=== PATIENT | male | born 1985 | race Caucasian/White ===

== ENCOUNTER 2023-01-30 21:14 | Outpatient (REF) | payer SELFPAY | END 2023-01-30 21:15 | disposition home or self-care (01) | LOC: LBN 21:14 | PROVIDERS: Visit Provider Physician Assistant Medical | DX: J02.9 Acute pharyngitis, unspecified (principal) | CPT/HCPCS: 87070 ==

== ENCOUNTER 2023-04-02 19:49 | Outpatient (CLI) | payer SELFPAY ==
[2023-04-02 14:20] LABS: Kit/Specimen SENT
== END 2023-04-02 19:50 | disposition home or self-care (01) ==
LOC: LBO 19:51
PROVIDERS: Visit Provider Naturopath
DX: R53.83 Other fatigue (principal); E63.8 Other specified nutritional deficiencies
CPT/HCPCS: 36415

== ENCOUNTER 2023-04-18 11:45 | Outpatient (CLI) | payer BC, SELFPAY ==
[2023-04-18 11:00] LABS: Abs Immature Grans 0.01 10^3/uL (0.0-0.06); Absolute Basophil Count 0.04 10^3/uL (0.0-0.2); Absolute Eosinophil Count 0.19 10^3/uL (0.0-0.7); Absolute Lymphocyte Count 1.45 10^3/uL (1.2-3.4); Absolute Monocyte Count 0.51 10^3/uL (0.1-0.8); Absolute Neutrophil Count 2.54 10^3/uL (1.2-6.7); Basophils % 0.8; HCT 43.4 % (40.0-50.0); HGB 14.2 g/dL (13.5-17.5); Immature Grans % 0.2; Lymphocytes % 30.6; MCH 28.9 pg (27.0-33.0); MCHC 32.7 % (32.0-36.0); MCV 88 fL (80-95); MPV 8.9 fL (8.0-11.0); Monocytes % 10.8; Neutrophils % 53.6; Platelet Count 204 10^3/uL (130-400); RBC 4.92 10^6/uL (4.36-5.78); RDW 11.8 % (11.8-14.1); RDW-SD 37.3 fL; WBC 4.74 10^3/uL (4.4-10.8)
[2023-04-18 11:02] LABS: Bilirubin Negative (Negative); Blood Negative (Negative); Clarity Clear (Clear); Glucose Negative (Negative); Ketones Negative (Negative); Leukocyte Esterase Negative (Negative); Nitrite Negative (Negative); Specific Gravity 1.025 (1.005-1.025); Urobilinogen 0.2 mg/dL (Up to 0.2)
[2023-04-18 11:17] LABS: Hemoglobin A1C 5.3 % (<5.7)
[2023-04-18 11:48] LABS: ALT 23 U/L (16-63); AST 17 U/L (15-37); Albumin 4.1 g/dL (3.4-5.0); Alkaline Phosphatase 79 U/L (46-116); Anion Gap 4.7 mmol/L (3-11); BUN 12 mg/dL (7-18); Bilirubin, Total 0.4 mg/dL (0.2-1.0); CO2 31.3 mmol/L (21.0-32.0); CREATININE 0.9 mg/dL (0.70-1.30); Calcium 9.2 mg/dL (8.5-10.1); Calculated LDL 157 mg/dL (<100); Chloride 103 mmol/L (98-107); Cholesterol 220 mg/dL (<200); Estimated GFR 112.81 (mL/min/1.73m2); Ferritin 99 ng/mL (26-388); Glucose 100 mg/dL (74-106); HDL Cholesterol 53 mg/dL (40-60); Potassium 4.2 mmol/L (3.5-5.1); Sodium 139 mmol/L (136-145); TSH 1.21 uIU/mL (0.36-3.74); Total Protein 7.8 g/dL (6.4-8.2); Triglyceride 53 mg/dL (<150)
[2023-04-18 11:51] LABS: Iron 97 ug/dL (65-175)
[2023-04-18 11:54] LABS: Vitamin D 25 Total 21.9 ng/mL (30-100)
[2023-04-18 12:09] LABS: FREE T4 0.92 ng/dL (0.76-1.46)
[2023-04-18 19:29] LABS: T3,Free 4.4 pg/mL (2.8-5.3)
[2023-04-18 19:57] LABS: Sex Hormone Binding Globulin 33.4 nmol/L (11.5-54.5)
[2023-04-21 10:35] LABS: Lyme Ab w Rflx to Lyme Confirm Negative (Negative)
[2023-04-25 12:39] LABS: Testosterone, Free 16.3 ng/dL (4.65-18.1); Testosterone, Total 554 ng/dL (240-950)
== END 2023-04-18 11:46 | disposition home or self-care (01) ==
LOC: LBO 11:47
PROVIDERS: Visit Provider Naturopath
DX: L40.8 Other psoriasis (principal); L20.89 Other atopic dermatitis; J30.2 Other seasonal allergic rhinitis; R42 Dizziness and giddiness; R53.83 Other fatigue; D50.9 Iron deficiency anemia, unspecified; E07.9 Disorder of thyroid, unspecified; Z13.220 Encounter for screening for lipoid disorders; R35.0 Frequency of micturition; Z13.1 Encounter for screening for diabetes mellitus; E55.9 Vitamin D deficiency, unspecified; R59.0 Localized enlarged lymph nodes
CPT/HCPCS: 36415; 80053; 80061; 82306; 84402; 84403; 81003; 82728; 83036; 83540; 84270; 84439; 84443; 84481; 85025; 86618

== ENCOUNTER 2024-11-09 11:40 | Emergency (ER) | payer BC, SELFPAY ==
[2024-11-09 11:50] VITALS: BP 127/91; PULSE 63; RESP 15; O2SAT 97
[2024-11-09] MEDS: Diph,Pertuss(Acell),Tet Vac/Pf 0.5 ML SYR IM (12:16)
[2024-11-09] MEDS: Acetaminophen 500 MG TAB 1000 MG PO (12:17)
[2024-11-09] MEDS: Cellulose,Oxidized 2X3 PKT 1 EACH MC (12:24)
[2024-11-09] MEDS: Lidocaine 2% Multi-Dose 20 ML VIAL IJ (12:37)
--- NOTE | 2024-11-09 12:49 | W.ED.GENAD ---
Discharge Plan Disposition Patient Disposition: Home Discharge Details Clinical Impression: Laceration of right middle finger, Immunization, tetanus-diphtheria Primary Care Provider: None,None ED Provider: Pedro Helms Home Meds and New Rx's Prescriptions: New Morphine Ir, 4 Tabs/Btl [Msir, 4 Tabs/Btl] 15 mg PO DISPENSE Qty: 4 0RF Discharge Instructions Additional Instructions: You were seen in the emergency department for your finger laceration. As we discussed, please keep your bandage intact and dry for the next 36 to 48 hours. You may remove your bandage on morning. You may keep the gauze in place and do not try to soak this off in the Friday morning. If you develop any recurrent bleeding please hold pressure. If your bleeding does not stop with pressure please return to the emergency department. Your tetanus was updated in the emergency department. For your pain please take medications as follows: 1. Take acetaminophen (Tylenol), 1,000 mg (two 500 mg tabs) every 6 hours [2. Take ibuprofen (Advil), 400 mg every 6 hours.] Discharge Data Discharge Date/Time-TO BE ENTERED AT DEPARTURE: 11/09/24 13:22 HPI General Date/Time Provider Initiated Documentation: 11/09/24 11:53. HPI Narrative: MDM This is an overall quite well-appearing normothermic and not tachycardic [id number] male with right middle finger tip superficial avulsion with ongoing bleeding for which patient received primary closure in the emergency department using cyanoacrylate glue and Telfa. Please see separate procedure note for details. Patient had intact sensation and motor function in his right middle finger. Based on the superficial nature of his wound I did not feel that he required radiographs. He received tetanus immunization. His wound was rinsed in tap water. He received as needed to go bottle of morphine in the event that he develops pain overnight requiring additional analgesia beyond scheduled acetaminophen and ibuprofen. No pain or proportion to suggest necrotizing soft tissue infection. His tetanus was updated. We discussed that he should keep his dressing clean dry and intact for the next 36 to 48 hours. He can then remove the Coban and to keep the Surgicel and Telfa intact for the next 4 days. He knows to return to the emergency department if he develops recurrent bleeding. HPI This is a previously healthy [id number] 39-year-old male not on any anticoagulants arrived to the emergency department via private vehicle in the setting of a laceration he sustained earlier today to the distal tip of his right middle finger. 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 He was able to control his bleeding with pressure. He has not yet rinsed his wounds. Denies any other injuries. Was in his usual state of health earlier today. He is not having any decreased range of motion in his right long finger. Exam General: Well-appearing in no acute distress speaking in complete sentences. Head: Normocephalic, atraumatic. Eye: Extraocular eye movements intact. No conjunctival injection. No scleral icterus. Ear, nose, mouth, throat: Grossly normal inspection. Normal voice, handling secretions normally. Neck: Trachea midline. Cardiovascular: Well-perfused distal extremities. Respiratory: Nonlabored respiration. Gastrointestinal: Nondistended abdomen. Musculoskeletal: On the distal tip of the right long finger there is a circular approximately 5 mm avulsion with minor venous oozing. Patient has intact strength in the right middle finger across the MCP, PIP, DIP joints with flexion and extension. His hand is warm well-perfused. He has 2+ radial pulse. Skin: Normal for age and race, grossly normal temperature and turgor. No acute rash. Neurologic: Alert and appropriate, no apparent acute deficits.GCS 15. Related Data Home Medications ?Medication ?Instructions ?Recorded ?Confirmed MORPHine IR, 4 tabs/btl [MSIR, 4 15 mg PO DISPENSE #4 tab-caps 11/09/24 tabs/btl] Previous Rx's ?Medication ?Instructions ?Recorded MORPHine IR, 4 tabs/btl [MSIR, 4 15 mg PO DISPENSE #4 tab-caps 11/09/24 tabs/btl] Allergies Allergy/AdvReac Type Severity Reaction Status Date / Time No Known Allergies Allergy Unverified 11/09/24 12:49 General Stated Complaint: Laceration DELMA: 4 Course Vital Signs Vital signs: Vital Signs Pulse 63 11/09/24 11:50 Respiratory Rate 15 11/09/24 11:50 Blood Pressure 127/91 H 11/09/24 11:50 Pulse Oximetry 97 11/09/24 11:50 Pulse 63 11/09/24 11:50 Respiratory Rate 15 11/09/24 11:50 Blood Pressure 127/91 H 11/09/24 11:50 Blood Pressure Position Sitting 11/09/24 11:50 Pulse Oximetry 97 11/09/24 11:50 Oxygen Delivery Method Room Air 11/09/24 11:50 Oxygen Flow Rate 0 11/09/24 11:50 Procedure Laceration Laceration 1: Date of Procedure: 11/09/24 Time of procedure: 13:01 Provider that performed the procedure: Pedro Hernandez Time Out Performed: No Patient Consented: Verbally Site: hand Side (If applicable): right Description: other (Avulsion) Depth: simple, single layer Pre-repair:: wound explored, irrigated extensively and deep structures intact Skin layer closed with: other (Initially after finger tourniquet was applied wound was closed with 3 layers of cyanoacrylate glue. Subsequently wound was dressed with Surgicel nonadherent Telfa and Coban. Tourniquet was removed no bleeding was noted.) Medical Decision Making Quality:SDOH Health Related Social Needs: Health related social needs food insecurity (Z59.41) PFSH All Active Problems (Updated 11/09/24 @ 12:55 by Pedro Helms MD) Immunization, tetanus-diphtheria (Acute) Laceration of right middle finger (Acute) Social History Smoking/Tobacco Use Status: Never Smoking risk assessment performed?: Yes Alcohol Intake: never Drug use: Never Substance use type: does not use Do you feel safe at home: Yes Do you feel safe in your relationship?: Yes
[2024-11-09] MEDS: MORPHine IR 15 MG TAB, 4 TABS/BTL PO (12:53)
[2024-11-09 13:04] VITALS: BP 124/80; PULSE 57; RESP 22; TEMP 36.7; O2SAT 98
== END 2024-11-09 13:22 | disposition home or self-care (01) ==
PROVIDERS: Emergency Provider Emergency Medicine
DX: S61.212A Laceration without foreign body of right middle finger without damage to nail, initial encounter (principal); Z23 Encounter for immunization; W26.8XXA Contact with other sharp object(s), not elsewhere classified, initial encounter
CPT/HCPCS: 12001; 90471; 90715; 99284; 99283; J2003

== ENCOUNTER 2025-03-26 19:15 | Emergency (ER) | payer BC, SELFPAY ==
--- NOTE | 2025-03-26 19:15 | DI.RAD_ITS ---
Exam(s) XR WRIST LT COMPLETE EXAM: XR WRIST LT COMPLETE CLINICAL HISTORY: trauma. TECHNIQUE: 2D digital imaging was performed. COMPARISON: No exams were available for comparison FINDINGS: 3 views There is no evidence of acute fracture or dislocation nor significant ulnar variance. Bone density normal. No osseous lesions. Scaphoid and scapholunate distance unremarkable. IMPRESSION: No significant osseous findings in the left wrist. DATA REPOSITORY: RADIATION DOSE DELIVERED:
--- NOTE | 2025-03-26 19:15 | DI.CT_ITS ---
Exam(s) CT HEAD WO EXAM: CT HEAD WO CLINICAL HISTORY: head trauma. TECHNIQUE: Imaging Protocol: Axial computed tomography images with coronal and sagittal reformatted images were created and reviewed COMPARISON: No exams were available for comparison FINDINGS: There are no skull fractures. There is no fluid in the visualized paranasal sinuses. There is no evidence of intracranial hemorrhage, mass effect, or shift of midline structures. There are no extra-axial fluid collections. The ventricles are not enlarged or shifted and there is no blood within the ventricular system nor within the basal cisterns. IMPRESSION: No acute intracranial findings on this noninfused CT scan of the brain. RADIATION DOSE DELIVERED: 839.73mGy.cm Total DLP DATA REPOSITORY: All CT scans at this facility are submitted to the National Radiology Data Registry (NRDR) Dose Index Registry (DIR) with the [employer] (A[employer]). RADIATION OPTIMIZATION: All CT scans at this facility use at least one of these dose optimization techniques: automated exposure control; mA and/or kV adjustment per patient size (includes targeted exams where dose is matched to clinical indication); or iterative reconstruction.
[2025-03-26 19:19] VITALS: PULSE 76; RESP 16; TEMP 36.7; O2SAT 97
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
[2025-03-26] MEDS: Acetaminophen 500 MG TAB 1000 MG PO (19:35)
[2025-03-26 20:21] VITALS: BP 143/97; PULSE 71; RESP 16; TEMP 36.7; O2SAT 100
--- NOTE | 2025-03-26 21:00 | DI.VRAD_ITS ---
PROCEDURE INFORMATION: Exam: XR Left Wrist Exam date and time: 03/26/2025 7:56 PM Age: 39 years old Clinical indication: Injury or trauma; Fall; Blunt trauma (contusions or hematomas); Wrist; Left TECHNIQUE: Imaging protocol: Radiologic exam of the left wrist. Views: 3 or more views. COMPARISON: No relevant prior studies available. FINDINGS: Bones/joints: Normal. Soft tissues: Normal. IMPRESSION: No acute findings. Dictated and Authenticated by: Tyler Lundberg MD. Orderin Alicia Winn MD
--- NOTE | 2025-03-26 21:00 | DI.VRAD_ITS ---
PROCEDURE INFORMATION: Exam: CT Head Without Contrast Exam date and time: 03/26/2025 7:46 PM Age: 39 years old Clinical indication: Injury or trauma; Fall; Blunt trauma (contusions or hematomas); Head trauma; Per PT: Skateboard TECHNIQUE: Imaging protocol: Computed tomography of the head without contrast. COMPARISON: No relevant prior studies available. FINDINGS: Brain: Normal. No hemorrhage. Unremarkable white matter. No mass effect. Cerebral ventricles: No ventriculomegaly. Paranasal sinuses: Visualized sinuses are unremarkable. No fluid levels. Mastoid air cells: Visualized mastoid air cells are well aerated. Bones: Unremarkable. No acute fracture. Soft tissues: Unremarkable. IMPRESSION: No acute intracranial abnormality. Dictated and Authenticated by: Tyler Lundberg MD. Orderin Alicia Winn MD
== END 2025-03-26 20:21 | disposition home or self-care (01) ==
PROVIDERS: Emergency Provider General Practice
DX: S01.91XA Laceration without foreign body of unspecified part of head, initial encounter (principal); M25.532 Pain in left wrist; X58.XXXA Exposure to other specified factors, initial encounter
CPT/HCPCS: 99284; 99283; 12002; 70450; 73110

== ENCOUNTER 2025-04-06 08:54 | Emergency (ER) | payer BC, SELFPAY ==
[2025-04-06 08:55] VITALS: BP 136/95; PULSE 54; RESP 15; TEMP 36.7; O2SAT 100
--- NOTE | 2025-04-06 15:08 | ED.GENADUL_ITS ---
Discharge Plan Discharge Details Chief Complaint: SutureRem Primary Care Provider: None,None ED Provider: Carisa Javier Home Meds and New Rx's Prescriptions: No Action No Known Home Meds Discharge Data Discharge Date/Time-TO BE ENTERED AT DEPARTURE: 04/06/25 09:11 HPI General Date/Time Provider Initiated Documentation: 04/06/25 09:02 . HPI Narrative: this 39-year-old male presents for staple removal from laceration head. Patient states that the area is tender but denies any headache and otherwise feels quite well. Related Data Home Medications ?Medication ?Instructions ?Recorded ?Confirmed Unknown [No Known Home Meds] 03/26/25 0 04/06/25 Allergies Allergy/AdvReac Type Severity Reaction Status Date / Time No Known Allergies Allergy Verified 04/06/25 09:02 General Stated Complaint: SutureRem DELMA: 4 Exam Narrative Exam Narrative: [address] to the occipital region with good approximation and healing Course Vital Signs Vital signs: Vital Signs Temperature 36.7 C 04/06/25 08:55 Pulse 54 L 04/06/25 08:55 Respiratory Rate 15 04/06/25 08:55 Blood Pressure 136/95 H 04/06/25 08:55 Pulse Oximetry 100 04/06/25 08:55 Temperature 36.7 C 04/06/25 08:55 Temperature Source Oral 04/06/25 08:55 Pulse 54 L 04/06/25 08:55 Respiratory Rate 15 04/06/25 08:55 Blood Pressure 136/95 H 04/06/25 08:55 Blood Pressure Position Sitting 04/06/25 08:55 Pulse Oximetry 100 04/06/25 08:55 Oxygen Delivery Method Room Air 04/06/25 08:55 Oxygen Flow Rate 0 04/06/25 08:55 Pain Level 0 04/06/25 08:55 Comment Pt reports tenderness but denies pain 04/06/25 08:55 Medical Decision Making Patient presents after head injury for staple removal. 4 rolanda were removed by nursing staff without incident. Return precautions reviewed patient expressed understanding tetanus up-to-date. Quality:SDOH Health Related Social Needs: Health related social needs food insecurity PFSH All Active Problems (Updated 03/26/25 @ 20:08 by Pa Vargas MD) Injury of left wrist (Acute) Laceration of head (Acute) Social History Smoking/Tobacco Use Status: Never Smoking risk assessment performed?: Yes Alcohol Intake: never Drug use: Occasionally Substance use type: marijuana Housing: house Do you feel safe at home: Yes Do you feel safe in your relationship?: Yes
== END 2025-04-06 09:11 ==
LOC: ER 09:01
PROVIDERS: Emergency Provider Physician Assistant
DX: Z48.02 Encounter for removal of sutures (principal)

== ENCOUNTER 2025-04-26 09:55 | Emergency (ER) | payer BC, SELFPAY ==
[2025-04-26 10:07] VITALS: BP 138/86; PULSE 58; RESP 16; TEMP 36.8; O2SAT 97
[2025-04-26 10:11] VITALS: BP 138/86; PULSE 58; RESP 16; TEMP 36.8; O2SAT 97
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
[2025-04-26] MEDS: Lidocaine 4% Cream 5 GM TUBE TP (13:20)
== END 2025-04-26 13:51 | disposition home or self-care (01) ==
PROVIDERS: Emergency Provider Physician Assistant
DX: K64.5 Perianal venous thrombosis (principal); Z59.41 Food insecurity
CPT/HCPCS: 99283; 99282; J3490

== ENCOUNTER 2025-04-28 10:39 | Emergency (ER) | payer BC, SELFPAY ==
[2025-04-28 10:48] VITALS: BP 131/86; PULSE 76; RESP 20; TEMP 36.8; O2SAT 97
[2025-04-28] MEDS: Lidocaine 1% Pres-Free W/EPI 1/200,000 30 ML VIAL IJ (12:13)
--- NOTE | 2025-04-28 15:24 | W.ED.GENAD ---
Discharge Plan Disposition Patient Disposition: Home Discharge Details Clinical Impression: External hemorrhoid, thrombosed Primary Care Provider: None,None ED Provider: Carisa Javier Home Meds and New Rx's Prescriptions: No Action No Known Home Meds Discharge Instructions Instructions: Hemorrhoids ED Additional Instructions: Continue with sitz bath's Start on some Colace and take for the next several days so that you have loose stools to assist with healing You may use a sanitary pad as there will be scant bleeding over the next few days there is a small laceration where the clot was removed that should heal well I have placed you on the list for surgical follow-up Referrals: Refugio Butler MD [ NON-[facility] STAFF PHYSICIAN, Medicine] HPI General Date/Time Provider Initiated Documentation: 04/28/25 10:40. HPI Narrative: This 39-year-old male presents with a report of thrombosed hemorrhoid in the perirectal region. He states he was started on medications which she has been applying topically including sitz bath's but had no improvement in symptoms which is why he presents. He denies any fever or chills or any additional complaints at this time. Denies history of similar symptoms in the past. Related Data Home Medications ?Medication ?Instructions ?Recorded ?Confirmed Unknown [No Known Home Meds] 03/26/25 04/28/25 Allergies Allergy/AdvReac Type Severity Reaction Status Date / Time No Known Allergies Allergy Verified 04/28/25 10:54 General Stated Complaint: Recheck DELMA: 4 Exam Narrative Exam Narrative: Thrombosed hemorrhoid noted to the 9 o'clock position no evidence of abscess formation Course Vital Signs Vital signs: Vital Signs Temperature 36.8 C 04/28/25 10:48 Pulse 76 04/28/25 10:48 Respiratory Rate 20 04/28/25 10:48 Blood Pressure 131/86 04/28/25 10:48 Pulse Oximetry 97 04/28/25 10:48 Temperature 36.8 C 04/28/25 10:48 Temperature Source Temporal Artery Scan 04/28/25 10:48 Pulse 76 04/28/25 10:48 Respiratory Rate 20 04/28/25 10:48 Blood Pressure 131/86 04/28/25 10:48 Blood Pressure Position Sitting 04/28/25 10:48 Pulse Oximetry 97 04/28/25 10:48 Oxygen Delivery Method Room Air 04/28/25 10:48 Oxygen Flow Rate 0 04/28/25 10:48 Pain Level 3 04/28/25 10:48 Medical Decision Making Procedure: Chlorhexidine was applied to thrombosed hemorrhoid lidocaine 1% with epinephrine was injected approximately 7 cc, clot was removed with forceps after approximately 5 mm incision with 11 blade, irrigated and gauze applied Assessment and plan: Patient was encouraged to continue sitz bath's for thrombosed hemorrhoid, Motrin and Tylenol as needed pain Colace daily for the next 3 to 5 days and a surgical referral was supplied. Patient was discharged home in stable condition with stable vitals. He is aware that this will likely ooze for the next several days. Return precautions reviewed and patient expressed understanding Quality:SDOH Health Related Social Needs: Health related social needs food insecurity PFSH All Active Problems (Updated 04/28/25 @ 11:56 by TYLER Gómez) External hemorrhoid, thrombosed (Acute) Social History Smoking/Tobacco Use Status: Never Smoking risk assessment performed?: Yes Alcohol Intake: never Drug use: Never Substance use type: does not use Housing: house Do you feel safe at home: Yes Do you feel safe in your relationship?: Yes
== END 2025-04-28 12:14 | disposition home or self-care (01) ==
PROVIDERS: Emergency Provider Physician Assistant
DX: K64.5 Perianal venous thrombosis (principal)
CPT/HCPCS: 46083; 99283; J2004